=== PATIENT | female | born 1960 | race Caucasian/White ===

== ENCOUNTER 2018-05-08 10:29 | Emergency (ER) | payer BC ==
[~2018-05-08] VITALS: Ht 157.5 cm; Wt 86.2 kg
[2018-05-08 10:44] VITALS: BP_SYST 137
--- NOTE | 2018-05-08 10:53 | NUR ---
Patient to ER bed 3 to gown for evaluation. Side rails up. Report given to Pito VALDES.
--- NOTE | 2018-05-08 10:55 | NUR ---
Pt presents to ER c/o LLQ abdominal pain 10/10 on pain scale along with nausea. Pt denies vomiting. Pt reports having normal bowel movement, denies constipation or diarrhea. Pt denies chest pain or sob. Pt in no acute respiratory distress, speaking full sentences, AOX4, ambulatory, family at bedside.
[2018-05-08] MEDS ORDERED: MORPHINE 4 MG/ML INJ. SYRINGE IVP ONE (11:00)
[2018-05-08] MEDS ORDERED: DIPHENHYDRAMINE INJ 50 MG/ML VIAL IVP ONE (11:00)
--- NOTE | 2018-05-08 11:05 | NUR ---
ER at bedside examining patient.
--- NOTE | 2018-05-08 11:20 | NUR ---
# 20 gauge angiocath placed to RAC. Use of asceptic technique. Opsite placed over site. Blood return noted. Blood for lab drawn from site. Flushed with 10 cc of normal saline. No evidence of infiltration noted. Patient tolerated well.
--- NOTE | 2018-05-08 11:24 | NUR ---
X-ray at bedside.
[2018-05-08 11:45] LABS: BASOPHILS # (AUTO) 0.1 K/uL (0.0-0.2); BASOPHILS % (AUTO) 0.6 % (0.0-2.0); EOSINOPHILS % (AUTO) 0.4 % (0.0-4.0); HEMATOCRIT 40.6 % (36-48); HEMOGLOBIN 13.5 g/dL (12.0-16.0); LYMPHOCYTES # (AUTO) 1.3 K/uL (1.0-5.5); LYMPHOCYTES % (AUTO) 12.5 % (20.5-51.5); MEAN CORPUSCULAR HEMOGLOBIN 32 pg (27-31); MEAN CORPUSCULAR HGB CONC 33 % (32-36); MEAN CORPUSCULAR VOLUME 95 fL (79.0-98.0); MONOCYTES # (AUTO) 0.8 K/uL (0.0-1.0); MONOCYTES % (AUTO) 7.7 % (1.7-9.3); NEUTROPHILS # (AUTO) 8.2 K/uL (1.8-7.7); NEUTROPHILS % (AUTO) 78.8 % (40.0-70.0); PLATELET COUNT (AUTO) 303 K/uL (130-430); RED BLOOD CELL COUNT(AUTO) 4.26 MIL/uL (4.2-6.2); RED CELL DISTRIBUTION WIDTH 13.4 % (9.0-15.0); WHITE BLOOD COUNT (AUTO) 10.4 K/uL (4.8-10.8)
[2018-05-08 11:50] LABS: CALCIUM 9.3 mg/dL (8.4-11.0); CREATININE 0.95 mg/dL (0.55-1.30); POTASSIUM 3.4 mmol/L (3.5-5.1)
[2018-05-08 11:54] LABS: ALBUMIN 3.4 g/dL (3.4-4.8); INR 0.9 (0.8-1.2); PROTHROMBIN TIME 9.2 SECS (9.5-12.5); TOTAL BILIRUBIN 0.4 mg/dL (0.0-1.0)
--- NOTE | 2018-05-08 11:55 | NUR ---
Note undone in EDM - 05/08/18 at 1157 by [email or web address] Pt presents to ER c/o LLQ abdominal pain 10/10 on pain scale along with nausea. Pt denies vomiting. Pt reports having normal bowel movement, denies constipation or diarrhea. Pt denies chest pain or sob. Pt in no acute respiratory distress, speaking full sentences, AOX4, ambulatory, family at bedside.
[2018-05-08 12:16] LABS: BILIRUBIN,URINE NEGATIVE (NEGATIVE); BLOOD, URINE 3+ (NEGATIVE); CLARITY/URINE CLEAR (CLEAR); COLOR,URINE YELLOW (YELLOW); GLUCOSE,URINE NEGATIVE (NEGATIVE); KETONES,URINE NEGATIVE (NEGATIVE); LEUKOCYTE ESTERASE ,URINE NEGATIVE (NEGATIVE); NITRITE, URINE NEGATIVE (NEGATIVE); PH,URINE 7.5 (5.0-8.0); PROTEIN URINE NEGATIVE (NEGATIVE); UROBILINOGEN,URINE 0.2 (0.2-1.0)
[2018-05-08 12:36] LABS: BACTERIA,URINE RARE /HPF (None Seen); RBC,URINE 20-50 /HPF (0-3)
[2018-05-08 12:37] LABS: MUCUS,URINE None Seen /LPF (None Seen); YEAST,URINE None Seen /HPF (None Seen)
--- NOTE | 2018-05-08 12:45 | NUR ---
Dr. Mackey at bedside speaking with pt discussing lab and diagnostic results.
[2018-05-08 13:00] VITALS: BP_SYST 137
--- NOTE | 2018-05-08 13:00 | NUR ---
Patient given written and verbal discharge instructions and verbalizes understanding. ER MD discussed with patient the results and treatment provided. Patient in stable condition. ID arm band removed. IV catheter removed intact and dressing applied, no active bleeding. Rx of [place] & Motrin given. Patient educated on pain management and to follow up with PMD. Pain Scale 2/10. Opportunity for questions provided and answered. Medication side effect fact sheet provided.
== END 2018-05-08 13:00 | disposition home or self-care (01) ==
LOC: SED 10:29
DX: N20.0 Calculus of kidney (principal); R03.0 Elevated blood-pressure reading, without diagnosis of hypertension; Z90.710 Acquired absence of both cervix and uterus
CPT/HCPCS: 36415; 71045; 74176; 80053; 81000; 83605; 83690; 85025; 85610; 87040; 93005; 96374; 96375; 99285; J1200; J2270

== ENCOUNTER 2019-09-06 20:14 | Emergency (ER) | payer BC ==
[~2019-09-06] VITALS: Ht 157.5 cm; Wt 81.6 kg
[2019-09-06 20:41] VITALS: BP_SYST 134
--- NOTE | 2019-09-06 20:46 | NUR ---
Patient triaged and placed in waiting room. VSS and patient appears in no acute distress at this time. Accompanied by self, awaiting available bed, and MD notified of need for MSE.
--- NOTE | 2019-09-06 21:30 | NUR ---
Patient left without being seen @ 2129
== END 2019-09-06 21:30 | disposition short-term general hospital (02) ==
LOC: SED 20:14
DX: N20.0 Calculus of kidney (principal); Z53.21 Procedure and treatment not carried out due to patient leaving prior to being seen by health care provider

== ENCOUNTER 2019-09-07 08:46 | Emergency (ER) | payer BC ==
[~2019-09-07] VITALS: Ht 157.5 cm; Wt 81.6 kg
[2019-09-07 08:53] VITALS: BP_SYST 135
--- NOTE | 2019-09-07 08:53 | NUR ---
Patient to ER bed 06 to gown for evaluation. Side rails up.
--- NOTE | 2019-09-07 09:05 | NUR ---
Pt brought by self, A&Ox4, pt presents to ER with L flank pain and hematuria, afebrile, skin pink and warm,cap refill <3, VSS, respirations even and unlabored
--- NOTE | 2019-09-07 09:07 | NUR ---
ER at bedside examining patient.
[2019-09-07] MEDS ORDERED: MORPHINE 4 MG/ML INJ. SYRINGE IVP ONE ×2 (09:15→12:30)
[2019-09-07] MEDS ORDERED: NACL 0.9% 1,000 ML IV ONE (09:15)
[2019-09-07] MEDS ORDERED: KETOROLAC TROMETHAMINE 15 MG VIAL IVP ONE (09:15)
[2019-09-07] MEDS ORDERED: ONDANSETRON HCL 4 MG/2 ML VIAL IVP ONE (09:15)
[2019-09-07 09:34] LABS: BASOPHILS # (AUTO) 0.1 K/uL (0.0-0.2); BASOPHILS % (AUTO) 0.8 % (0.0-2.0); EOSINOPHILS # (AUTO) 0.2 K/uL (0.0-0.4); EOSINOPHILS % (AUTO) 1.9 % (0.0-4.0); HEMATOCRIT 42.9 % (36-48); HEMOGLOBIN 14.5 g/dL (12.0-16.0); LYMPHOCYTES % (AUTO) 35.8 % (20.5-51.5); MEAN CORPUSCULAR HEMOGLOBIN 31 pg (27-31); MEAN CORPUSCULAR HGB CONC 34 % (32-36); MEAN CORPUSCULAR VOLUME 91 fL (79.0-98.0); MONOCYTES # (AUTO) 0.7 K/uL (0.0-1.0); MONOCYTES % (AUTO) 8.2 % (1.7-9.3); NEUTROPHILS # (AUTO) 4.5 K/uL (1.8-7.7); NEUTROPHILS % (AUTO) 53.3 % (40.0-70.0); PLATELET COUNT (AUTO) 288 K/uL (130-430); RED BLOOD CELL COUNT(AUTO) 4.74 MIL/uL (4.2-6.2); RED CELL DISTRIBUTION WIDTH 13.7 % (9.0-15.0); WHITE BLOOD COUNT (AUTO) 8.5 K/uL (4.8-10.8)
[2019-09-07 09:46] LABS: CALCIUM 8.5 mg/dL (8.4-11.0); CREATININE 0.75 mg/dL (0.55-1.30); POTASSIUM 4.6 mmol/L (3.5-5.1)
[2019-09-07 09:51] LABS: ALBUMIN 3.5 g/dL (3.4-4.8); TOTAL BILIRUBIN 0.3 mg/dL (0.0-1.0)
--- NOTE | 2019-09-07 12:27 | NUR ---
Pt off the unit for CT
--- NOTE | 2019-09-07 12:45 | NUR ---
Pt returned from CT on stable condition
[2019-09-07 13:34] LABS: BILIRUBIN,URINE NEGATIVE (NEGATIVE); BLOOD, URINE 3+ (NEGATIVE); CLARITY/URINE CLEAR (CLEAR); COLOR,URINE YELLOW (YELLOW); GLUCOSE,URINE NEGATIVE (NEGATIVE); KETONES,URINE NEGATIVE (NEGATIVE); LEUKOCYTE ESTERASE ,URINE NEGATIVE (NEGATIVE); NITRITE, URINE NEGATIVE (NEGATIVE); PH,URINE 5.5 (5.0-8.0); PROTEIN URINE 1+ (NEGATIVE); UROBILINOGEN,URINE 0.2 (0.2-1.0)
[2019-09-07 13:40] LABS: BACTERIA,URINE FEW /HPF (None Seen); RBC,URINE 50-80 /HPF (0-3)
--- NOTE | 2019-09-07 13:59 | NUR ---
Pt states pain improving at this time.
[2019-09-07 14:19] VITALS: BP_SYST 115
--- NOTE | 2019-09-07 14:20 | NUR ---
Patient given written and verbal discharge instructions and verbalizes understanding. ER MD discussed with patient the results and treatment provided. Patient in stable condition. ID arm band removed. IV catheter removed intact and dressing applied, no active bleeding. Rx of NORCO, KEFLEX, ZOFRAN ODT given. Patient educated on pain management and to follow up with PMD. Pain Scale 0. Opportunity for questions provided and answered. Medication side effect fact sheet provided.
== END 2019-09-07 14:19 | disposition home or self-care (01) ==
LOC: SED 08:46
DX: N20.0 Calculus of kidney (principal); R82.71 Bacteriuria; Z90.710 Acquired absence of both cervix and uterus; Z87.442 Personal history of urinary calculi
CPT/HCPCS: 36415; 74176; 80053; 81000; 85025; 96374; 96375; 96376; 99284; J1885; J2270; J2405; J7030